=== PATIENT | female | born 1930 | race Caucasian/White ===

== ENCOUNTER → 2017-08-20 | Outpatient (CLI) | payer MEDICARE, BC ==
[~2017-08-20] MED LIST: BYSTOLIC5 MG PO; FEMARA PO; HYZAAR 25 MG-101 TAB PO; K-DUR 10 MEQ T10 MEQ PO; LORTAB 5/500 501 TAB PO; NORVASC 5MG5 MG/TAB PO; SLOW FE45 MG PO; VICODIN 5/5001 UDTAB PO; VITAMIN B125000 MCG SL; ZOCOR 20MG20 MG PO
== END ==
LOC: MC.RAD 13:29
DX: Z12.31 Encounter for screening mammogram for malignant neoplasm of breast (principal); Z85.3 Personal history of malignant neoplasm of breast; Z98.890 Other specified postprocedural states

== ENCOUNTER → 2018-08-23 | Outpatient (CLI) | payer MEDICARE, BC | LOC: MC.RAD 13:20 | DX: Z12.31 Encounter for screening mammogram for malignant neoplasm of breast (principal); C50.311 Malignant neoplasm of lower-inner quadrant of right female breast; N64.89 Other specified disorders of breast; Z17.0 Estrogen receptor positive status [ER+]; Z98.890 Other specified postprocedural states ==

== ENCOUNTER → 2018-08-27 | Outpatient (CLI) | payer MEDICARE, BC | LOC: MC.RAD 10:24 | DX: R92.2 Inconclusive mammogram (principal); Z17.0 Estrogen receptor positive status [ER+]; Z85.3 Personal history of malignant neoplasm of breast | CPT/HCPCS: G0279 ==